=== PATIENT | female | born 1955 | race Caucasian/White ===

== ENCOUNTER 2018-06-06 07:57 | Day surgery (SDC) | payer BC, OTHER ==
[2018-06-06] VITALS (15 sets, daily range): BP systolic 96–154; BP diastolic 46–70; PULSE 51–72; RESP 10–21; Ht 170.2 cm; Wt 62.4 kg
[~2018-06-06] VITALS: Ht 170.2 cm; Wt 62.4 kg
[2018-06-06] MEDS ORDERED: ROCURONIUM 50 MG INJ ONE (09:11)
[2018-06-06] MEDS ORDERED: CEFAZOLIN 1 GM INJ ONE (09:11)
[2018-06-06] MEDS ORDERED: FENTAnyl 50 MCG/ML VIAL ONE (09:11)
[2018-06-06] MEDS ORDERED: PROPOFOL 20 ML ONE (09:11)
[2018-06-06] MEDS ORDERED: MIDAZOLAM 1 MG/ML 2 ML INJ ONE (09:11)
--- NOTE | 2018-06-06 10:45 | PREAC ---
Date/Time of Note Date/Time of Note DATE: 06/06/18 TIME: 10:44 Anesthesia Eval and Record Evaluation Time Pre-Procedure Interview DATE: 06/06/18 TIME: 10:44 Age 62 Sex female NPO: 8 hrs Preoperative diagnosis Left Knee Medical and Lateral meniscal Tears Planned procedure Left Knee Arthroscopy, Past Medical History Past Medical History: None Surgery & Anesthesia Issues No known issue Meds Anticoagulation: No Beta Cahrli within 24 hr: No Reason Beta Charli not given: Pt. not on B-Charli No Active Prescriptions or Reported Meds Meds reviewed: Yes Allergies Coded Allergies: No Known Allergy (Unverified , 06/06/18) Allergies Reviewed: Yes Labs/Studies Labs Reviewed: Reviewed by anesthesiologist test: N/A Studies: ECG (n/a), CXR (n/a) Pre-procedure Exam Last vitals Vital Signs Date Temp Pulse Resp B/P (MAP) Pulse Ox O2 O2 Flow FiO2 Time Delivery Rate 06/06/18 97.8 56 16 111/54 100 Room Air 08:37 (73) Airway: Adequate mouth opening, Adequate thyromental dist Mallampati: Mallampati II Teeth: Normal Lung: Normal Heart: Normal ASA Physical Status ASA physical status: 2 Emergency: None Planned Anesthetic General/MAC: ETT, LMA Planned Pain Management Parenteral pain med Pre-operative Attestations Prior to commencing anesthesia and surgery, the patient was re-evaluated, there was verification of: *The patient's identity *The results of appropriate recent lab work and preoperative vital signs *The above evaluation not changing prior to induction *Anesthetic plan, risk benefits, alternative and complications discussed with patient/family; questions answered; patient/family understands, accepts and wishes to proceed. ANCELMO HAMPTON MD Jun 06, 2018 10:45
[2018-06-06] MEDS ORDERED: LABETALOL HCL 20MG INJ IV PRN (11:00)
[2018-06-06] MEDS ORDERED: DIPHENHYDRAMINE 50 MG INJ IV PRN (11:00)
[2018-06-06] MEDS ORDERED: HYDROmorphONE 1 MG/5 ML IV SYRINGE IV PRN ×3 (11:00)
[2018-06-06] MEDS ORDERED: MEPERIDINE 25 MG INJ IV PRN (11:00)
[2018-06-06] MEDS ORDERED: OXYCODONE/ACETAMINOPHEN (5/325) TAB PO PRN ×3 (11:00→13:00)
[2018-06-06] MEDS ORDERED: FENTAnyl 50 MCG/ML VIAL IV PRN ×3 (11:00)
[2018-06-06] MEDS ORDERED: METOCLOPRAMIDE 10 MG INJ IV PRN (11:00)
[2018-06-06] MEDS ORDERED: ONDANSETRON 4 MG INJ IV PRN ×2 (11:00→13:00)
[2018-06-06] MEDS ORDERED: EPHEDrine SULFATE 50 MG/5 ML SYG IV PRN (11:00)
[2018-06-06] MEDS ORDERED: PHENYLephrine (100 MCG/ML) 10ML SYG ONE (11:07)
[2018-06-06] MEDS ORDERED: EPHEDrine 50 MG INJ ONE (11:21)
[2018-06-06] MEDS ORDERED: ONDANSETRON 4 MG INJ ONE (11:21)
[2018-06-06] MEDS ORDERED: KETOROLAC 30 MG INJ ONE (11:21)
[2018-06-06] MEDS ORDERED: METOCLOPRAMIDE 10 MG INJ ONE (11:21)
[2018-06-06] MEDS ORDERED: DEXAMETHASONE 4 MG/ML 5 ML INJ ONE (11:21)
[2018-06-06] MEDS ORDERED: ROPIVACAINE 0.5 % 30 ML VIAL ONE (11:27)
[2018-06-06] MEDS ORDERED: GLYCOPYRROLATE 0.4 MG INJ ONE (12:39)
[2018-06-06] MEDS ORDERED: NEOSTIGMINE 3 MG/3 ML SYRINGE ONE (12:39)
--- NOTE | 2018-06-06 12:52 | PAC ---
Date/Time of Note Date/Time of Note DATE: 06/06/18 TIME: 12:52 Post-Anesthesia Notes Post-Anesthesia Note Last documented vital signs Vital Signs Date Temp Pulse Resp B/P (MAP) Pulse Ox O2 O2 Flow FiO2 Time Delivery Rate 06/06/18 97.8 56 16 111/54 100 Room Air 12:57 (73) Activity: WNL Respiratory function: WNL Cardiovascular function: WNL Mental status: Baseline Pain reasonably controlled: Yes Hydration appropriate: Yes Nausea/Vomiting absent: Yes ANCELMO HAMPTON MD Jun 06, 2018 12:52
[2018-06-06] MEDS ORDERED: SOD CHLORIDE 0.9% 1,000 ML IV SCH (12:59)
--- NOTE | 2018-06-06 12:59 | OPPN ---
Date/Time of Note Date/Time of Note DATE: 06/06/18 TIME: 12:58 Operative Report Preoperative Diagnosis Medial and lateral meniscus tear and chondromalacia of the left knee Postoperative Diagnosis same Operation/Procedure Performed Arthroscopic partial medial and lateral meniscectomy and chondroplasty Surgeon see signature line virtual office assistant DO Daryl Anesthesia: general Estimated blood loss: minimal Transfusion Required none Specimen none Grafts/Implants none Complications none JANINE AUSTIN MD Jun 06, 2018 12:59
[2018-06-06] MEDS ORDERED: morphine 2 MG INJ IV PRN (13:00)
--- NOTE | 2018-06-06 14:17 | OPR ---
DATE OF OPERATION: 06/06/2018 PREOPERATIVE DIAGNOSES: 1. Tear of medial meniscus and lateral meniscus, left knee. 2. Rule out loose body. POSTOPERATIVE DIAGNOSES: 1. Complex tear posterior horn of the medial meniscus. 2. Tear lateral meniscus. 3. Chondromalacia grade IV, where there is an osteochondral defect 10 x 6 mm along the lateral femo ral condyle. 4. Removal osteochondral loose body greater than 1 cm. 5. Excision of a medial synovial shelf and suprapatellar plica. 6. Chondroplasty of patella. SURGEON: Janien Pedraza MD PRESTO LOG OPERATOR: David Brito MD ANESTHESIA: General. TOURNIQUET TIME: Zero. DESCRIPTION OF PROCEDURE: The patient taken to the operating room and placed in supine position. Sa tisfactory general anesthesia was administered. The left knee was prepped and draped in the usual ma nner. Exam under anesthesia revealed full range of motion, AP drawer and Charles, 1+ pivot shift neg ative. No varus-valgus instability. After giving her 2 grams Ancef, standard arthroscopic portals were used on the undersurface of the pa tella and some grade I to II chondromalacia to the trochlea. There was a thick suprapatellar plica. There was an abrading medial synovial shelf along the medial femoral condyle. Lateral gutter had no loose bodies. Popliteus intact. compartment was entered. There was a chondral fragment in t he lateral gutter and there was a defect and divot in the lateral femoral condyle. There was tearing of the lateral meniscus from anterior to posterior, with grade 2 chondromalacia of the lateral tibia l plateau. Anterior and posterior cruciates were intact, origins and insertions. Medial compartment was entered. Grade I to II chondromalacia medial compartment. There was a tear of the posterior chamorro lf medial meniscus. Probe was inserted. The medial meniscus tear was palpated using curved and stra ight baskets and was saucerized in the mid zone of the posterior horn. Had had a horizontal cleavage component which was cut back to the capsular edge. Shaver was used to smooth and contour the edges and remove all loose debris. Once a stable rim had been achieved chondroplasty was performed along t he medial compartment. The anterior and posterior cruciates were palpated and were intact. The late ral meniscus was approached using curved and straight baskets. A tear was saucerized from the outreach clinician ior horn.= and the anterior horn. Shaver was used to smooth and contour the edges. Chondral loose b makeda was removed with a grasper greater than 1 cm. Chondroplasty performed along the patella and elec trosurgery wand was inserted. Medial synovial shelf was excised. There was no more abrasion over th e medial femoral condyle. The suprapatellar plica was excised using electrosurgery as well as a shav er. All bleeders were coagulated, wounds were irrigated clear. After chondroplasty of the patella t he wounds were closed with 3-0 black nylon and Steri-Strips. Knee was infiltrated with 0.5% ropivaca ine. Compression dressing and ice pack were applied. The patient brought to recovery room in stable condition. Interprocedure sponge count was correct. Patient tolerated procedure well. Dictated By: JANINE DRISCOLL/GISELLA Conf#: [id number] DID#: [id number]
== END 2018-06-06 15:30 | disposition home or self-care (01) ==
LOC: SDS 07:57
PROVIDERS: ATTEND Orthopaedic Surgery
DX: S83.232D Complex tear of medial meniscus, current injury, left knee, subsequent encounter (principal); S83.282D Other tear of lateral meniscus, current injury, left knee, subsequent encounter; X58.XXXD Exposure to other specified factors, subsequent encounter; M94.262 Chondromalacia, left knee
CPT/HCPCS: 29880; J0690; J1100; J1885; J2250; J2405; J2710; J2765; J2795; J3010; J2370